=== PATIENT | male | born 1945 | race Hispanic/Latino ===

== ENCOUNTER 2021-11-09 06:04 | Day surgery (SDC) | payer MEDICARE, OTHER ==
[2021-11-02 12:50] LABS: Hematocrit 41.6 % (35.5-45.6); Hemoglobin 14.1 gm/dl (11.8-15.2); Mean Corpuscular HGB Conc 34 % (32-34); Mean Corpuscular Volume 92 fl (84-94); Platelet Count 196 K/mm3 (140-440); Red Blood Count 4.51 M/mm3 (3.65-5.03); Red Cell Distribution Width 13.5 % (13.2-15.2)
[2021-11-02 13:07] LABS: Alanine Aminotransferase 13 units/L (7-56); Albumin 4.4 g/dL (3.9-5); BUN/Creatinine Ratio 17; Blood Urea Nitrogen 15 mg/dL (9-20); Calcium 9.2 mg/dL (8.4-10.2); Hemolysis Index 3
[~2021-11-09 06:04] MED LIST: LACTATED RINGERS 1,000 ML IV SCH
--- NOTE | 2021-11-09 07:28 | Anesthesia Day of Surgery ---
Anesthesia Day of Surgery - Day of Surgery Patient Examined: Yes Patient H&P Reviewed: Yes Patient is NPO: Yes
--- NOTE | 2021-11-09 07:28 | Anesthesia Consultation ---
Anesthesia Consult and Med Hx Date of service: 11/09/21 - Airway Anesthetic Teeth Evaluation: Good ROM Head & Neck: Adequate Mental/Hyoid Distance: Adequate Mallampati Class: Class III Intubation Access Assessment: Possibly Difficult - Pre-Operative Health Status ASA Pre-Surgery Classification: ASA2 Proposed Anesthetic Plan: General - Pulmonary Hx Smoking: Yes (former smoker quit 15yrs ago) Hx Respiratory Symptoms: No Hx Sleep Apnea: No (STEPH PRE SCREEN HIGH RISK) - Cardiovascular System Hx Hypertension: No Hx Heart Attack/AMI: No - Central Nervous System CVA: No Hx Back Pain: Yes - Endocrine Hx Renal Disease: No Hx Liver Disease: No Hx Insulin Dependent Diabetes: No Hx Non-Insulin Dependent Diabetes: No Hx Thyroid Disease: No - Other Systems Hx Cancer: Yes (bladder ca) - Additional Comments Anesthesia Medical History Comments: No hx anesthetic complications.
[2021-11-09] MEDS ORDERED: fentaNYL 100 MCG/2 ML INJ IV PRN (08:00)
[2021-11-09] MEDS ORDERED: HYDROcodone/ACETAMINOPHEN 5-325 MG TAB PO PRN (08:00)
[2021-11-09] MEDS ORDERED: ONDANSETRON 4 MG/2 ML INJ IV PRN (08:00)
[2021-11-09] MEDS ORDERED: propofoL 200 MG/20 ML VIAL IV ONE (08:05)
[2021-11-09] MEDS ORDERED: fentaNYL 100 MCG/2 ML INJ ONE (08:18)
[2021-11-09] MEDS ORDERED: hydrALAZINE 20 MG/1 ML INJ IV SCH (09:00)
[2021-11-09] MEDS ORDERED: hydrALAZINE 20 MG/1 ML INJ ONE (09:10)
--- NOTE | 2021-11-09 09:15 | Operative Report ---
DATE OF SURGERY: 11/09/2021 TIME: Approximately 8:00 a.m. PREOPERATIVE DIAGNOSES: 1. History of bladder cancer. 2. Recurrent tumor. POSTOPERATIVE DIAGNOSES: 1. History of bladder cancer. 2. Recurrent tumor. OPERATIVE PROCEDURES: Cystoscopy, fulguration of an approximately 2 cm area on the left trigone of the bladder. SPECIMEN: Bladder wash. ANESTHESIA: General. ESTIMATED BLOOD LOSS: 5 mL DRAINS: None. COMPLICATIONS: None. INDICATIONS FOR PROCEDURE: The patient is a 76-year-old man with a history of high-grade bladder cancer, status post intravesical therapy. On surveillance cystoscopy, he had a recurrent lesion. He was brought to the operating room for fulguration. DESCRIPTION OF PROCEDURE IN DETAIL: After induction of suitable anesthesia and proper positioning and preparation in the dorsal lithotomy position, a cystoscope was used to enter the bladder under direct visualization. The patient had a mildly obstructive prostate. The lesion seen on local cystoscopy on the left trigone was once again identified. Using a Bugbee electrocautery, this area was copiously fulgurated. It was approximately 2 cm in size. There was excellent hemostasis. The rest of the bladder was examined and there were no other lesions. The bladder was drained, and the cystoscope was removed. The patient was then awakened from anesthesia and transferred to the recovery room in stable condition. He will return in approximately 2 weeks for a followup visit to discuss the potential need for further intravesical therapy. TID: [id number] RECEIPT: [id number] ROBSON/VANESSA
[2021-11-09 10:33] VITALS: BP 145/74
--- NOTE | 2021-11-09 11:29 | Post Anesthesia Evaluation ---
- Post Anesthesia Evaluation Patient Participated: Yes Airway Patent: Yes Stable Respiratory Function: Yes Nausea/Vomiting: No Temp > 96.8F: Yes Pain Manageable: Yes Adequeate Hydration: Yes Anesthesia Complications: No
== END 2021-11-09 10:15 | disposition home or self-care (01) ==
LOC: OR 06:04
PROVIDERS: ATTEND Urology
DX: C67.2 Malignant neoplasm of lateral wall of bladder (principal); C67.0 Malignant neoplasm of trigone of bladder; K21.9 Gastro-esophageal reflux disease without esophagitis; Z20.822 Contact with and (suspected) exposure to COVID-19; Z88.0 Allergy status to penicillin; Z87.891 Personal history of nicotine dependence; Z98.41 Cataract extraction status, right eye; Z98.42 Cataract extraction status, left eye; Z98.890 Other specified postprocedural states
CPT/HCPCS: 36415; 52234; 80053; 85027; J0360; J1956; J2704; J3010; J7120; U0003

== ENCOUNTER 2022-04-12 08:58 | Day surgery (SDC) | payer MEDICARE, OTHER ==
[2022-04-12] MEDS ORDERED: LACTATED RINGERS 1,000 ML ONE (09:19)
[2022-04-12] MEDS ORDERED: ONDANSETRON 4 MG/2 ML INJ IV PRN (10:19)
[2022-04-12] MEDS ORDERED: HYDROmorphone 0.5 MG/0.5 ML INJ IV PRN ×2 (10:19)
--- NOTE | 2022-04-12 10:20 | Anesthesia Day of Surgery ---
Anesthesia Day of Surgery - Day of Surgery Patient Examined: Yes Patient H&P Reviewed: Yes Patient is NPO: Yes
--- NOTE | 2022-04-12 10:21 | Anesthesia Consultation ---
Anesthesia Consult and Med Hx Date of service: 04/12/22 - Airway Anesthetic Teeth Evaluation: Good, Caps, Crowns ROM Head & Neck: Adequate Mental/Hyoid Distance: Adequate Mallampati Class: Class II Intubation Access Assessment: Good - Pre-Operative Health Status ASA Pre-Surgery Classification: ASA2 Proposed Anesthetic Plan: General - Pulmonary Hx Smoking: Yes (STOPPED 2006) Hx Respiratory Symptoms: No Hx Sleep Apnea: No (STEPH PRE SCREEN HIGH RISK) - Cardiovascular System Hx Hypertension: No Hx Heart Attack/AMI: No - Central Nervous System CVA: No Hx Back Pain: Yes Hx Psychiatric Problems: No - Gastrointestinal Hx Gastroesophageal Reflux Disease: No - Endocrine Hx Renal Disease: No Hx Liver Disease: No Hx Insulin Dependent Diabetes: No Hx Non-Insulin Dependent Diabetes: No Hx Thyroid Disease: No - Hematic Hx Anemia: No Hx Sickle Cell Disease: No - Other Systems Hx Alcohol Use: No Hx Substance Use: No Hx Cancer: Yes (bladder ca) Hx Obesity: No
[2022-04-12] MEDS ORDERED: LACTATED RINGERS 1,000 ML IV SCH (10:30)
[2022-04-12] MEDS ORDERED: GENTAMICIN/NS 80 MG/100 ML 100 ML IV ONE ×2 (10:42→10:44)
[2022-04-12] MEDS ORDERED: CLINDAMYCIN 600 MG/50 mL 600 MG/50 ML BAG IV ONE (10:42)
[2022-04-12] MEDS ORDERED: CLINDAMYCIN 600 MG/50 mL 600 MG/50 ML BAG IV NR (11:00)
[2022-04-12] MEDS ORDERED: ePHEDrine SULFATE 50 MG/1 ML INJ ONE (11:37)
[2022-04-12] MEDS ORDERED: HYDROmorphone 1 MG/1 ML INJ ONE (11:37)
[2022-04-12] MEDS ORDERED: dexAMETHasone 20 MG/5 ML VIAL ONE (11:37)
[2022-04-12] MEDS ORDERED: ONDANSETRON 4 MG/2 ML INJ ONE (11:37)
[2022-04-12] MEDS ORDERED: propofoL 200 MG/20 ML VIAL IV ONE (11:37)
[2022-04-12] MEDS ORDERED: WATER FOR IRRIG STERILE 2000 ML IR ONE (12:14)
[2022-04-12] MEDS ORDERED: IOHEXOL 300 MG/ML 50ML IV ONE (12:15)
[2022-04-12 13:57] VITALS: BP 143/70
--- NOTE | 2022-04-12 14:11 | Fluoroscopy Report ---
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 COMPARISON: None. IMPRESSION: 45 seconds of fluoroscopy time was provided by radiology during left retrograde urograph y and left ureteral stent placement. 6 fluoroscopic images are presented. Please correlate with the procedural report as needed. Signer Name: Ravinder Avery Jr, MD Signed: 04/12/2022 2:07 PM Workstation Name: [id number]
--- NOTE | 2022-04-12 14:27 | Operative Report ---
DATE OF SURGERY: 04/12/2022 TIME: At approximately 11:30 a.m. PREOPERATIVE DIAGNOSES: 1. History of bladder cancer, status post BCG. 2. Filling defect on left ureter. POSTOPERATIVE DIAGNOSES: 1. History of bladder cancer, status post BCG. 2. Filling defect on left ureter. 3. Distal left ureteral mass. OPERATIVE PROCEDURES: 1. Cystoscopy. 2. Left retrograde pyelogram. 3. Left ureteroscopy. 4. Left double-J stent insertion, 6 x 24. ATTENDING: Geraldo Booker MD ASSISTANTS: None. ANESTHESIA: General. ESTIMATED BLOOD LOSS: 10 mL. DRAINS: A 6 x 24 double-J stent. SPECIMENS: 1. Bladder wash for cytology. 2. Left renal wash for cytology. COMPLICATIONS: None. INDICATIONS FOR PROCEDURE: The patient is a 77-year-old man with a history of high-grade bladder cancer, status post BCG, who was found to have a possible left distal ureteral filling defect. He returned today for surveillance cystoscopy and left retrograde pyelogram and possible other procedures to evaluate the filling defect. DESCRIPTION OF PROCEDURE: After induction of suitable anesthesia and proper positioning and preparation in the dorsal lithotomy position, a cystoscope was used to enter the bladder under direct visualization. There were no bladder or urethral mucosal lesions pending washings. The left ureteral orifice was identified and a wire was placed into the kidney to allow for advancement of an open-ended retro catheter. A left retrograde pyelogram was performed, which showed no filling defects in the renal pelvis or proximal or mid ureter. There was some ballooning in the distal ureter with some proximal hydronephrosis. A wire was reinserted and a rigid ureteroscope was used to perform direct visualization of the distal left ureter. Upon entering it, a second wire was used to help guide the ureteroscope into the undilated ureteral orifice. Upon entry into the distal ureter, a tumor was visible. It appeared very papillary, but it was occluding the lumen. I was not able to negotiate the rigid ureteroscope past the tumor. An aspiration biopsy was then taken to allow for evaluation of the grade of the tumor. After the ureteroscope was removed, a 6 x 24 double-J stent was inserted in the usual manner, so that the ureter can be dilated to allow for followup biopsies if needed. If the cytology shows high-grade tumor, the patient may just proceed directly to a left distal ureterectomy with reimplantation. For now, the patient will be discharged home with the stent in place. Followup will be determined based on pathology review. He should return to the office on Sunday for discussion. As the attending surgeon, I was present and performed the entire procedure. TID: [id number] RECEIPT: [id number] DJC/HEM/TASincere
--- NOTE | 2022-04-12 19:03 | Post Anesthesia Evaluation ---
- Post Anesthesia Evaluation Patient Participated: Yes Airway Patent: Yes Stable Respiratory Function: Yes Nausea/Vomiting: No Temp > 96.8F: Yes Pain Manageable: Yes Adequeate Hydration: Yes Anesthesia Complications: No Block Receding Appropriately: Not Applicable Patient on Ventilator: No
== END 2022-04-12 14:20 | disposition home or self-care (01) ==
LOC: OR 08:58
PROVIDERS: ATTEND Urology
DX: N28.89 Other specified disorders of kidney and ureter (principal); C67.3 Malignant neoplasm of anterior wall of bladder; K21.9 Gastro-esophageal reflux disease without esophagitis; Z88.0 Allergy status to penicillin; Z79.899 Other long term (current) drug therapy; Z87.891 Personal history of nicotine dependence; Z98.41 Cataract extraction status, right eye; Z98.42 Cataract extraction status, left eye; Z98.890 Other specified postprocedural states
CPT/HCPCS: 52332; 74420; C1758; C1769; C1889; J1100; J1170; J1580; J2405; J2704; J3490; J7120; J7502; U0003